=== PATIENT | female | born 1995 | race African-American/Black ===

== ENCOUNTER 2016-05-29 13:53 | Inpatient (IN) | payer OTHER ==
[~2016-05-29] VITALS: Ht 165.1 cm; Wt 115.0 kg
[2016-05-29 14:04] VITALS: BP 144/85
[2016-05-29] MEDS ORDERED: PRENTAB9 PO (14:16)
[2016-05-29] MEDS ORDERED: HEPA10004 SC (14:16)
[2016-05-29 15:53] VITALS: BP 124/60
[2016-05-29 18:04] VITALS: BP 138/64
[2016-05-29] MEDS ORDERED: LACTATED RINGER'S 1000 ML IV STA (19:25)
--- NOTE | 2016-05-29 19:50 | HPEPDOC ---
Obstetrical History & Physical General Date of Admission May 29, 2016 at 18:53 Primary Care Physician: WANDY MADSEN MD History of Present Illness 20 yo presented to L&D @ 37+6 by 6+6 wk US done on 20OCT2015 from clinic d/t late decels on NST being done for 22 wk loss and Factor V Leiden. Denies DFM, LOF, CTX and VB. GBS positive. Chief Complaint: Other (NRFHT) Information Provided By: Patient Age: 20 : 2 Term: 0 Pre-term: 1 Abortions: 0 Livin Care Care: Good Care Number of Visits: 17 Dating Final EDC: Jun 13, 2016 Final EDC for Daily Update: Jun 13, 2016 Final EDC by: 1st trimester (US) LMP: Sep 09, 2015 1st Trimester Date: Oct 20, 2015 Weeks + Days: 6.6 Estimated Date of Confinement: Jun 13, 2016 EGA at Admission: 37.6 Antepartum Course Diagnos(e)s 1. sickle cell trait positive 2. LGSIL 3. hx IUFD @ 22 wks 4. factor V Leiden 5. GBS positive- PCN allergy- clinda resistent 6. BMI- 34 Height (inches): 65 Pre- weight (lbs.): 210 Admission Weight (lbs.): 255 Change in Weight (lbs.): 45 Past Medical History Past Obstetrical History : Past Obstetrical History: Multigravida Date of Delivery: Mar 31, 2015 Gestation: 22 Type of Delivery: Spontaneous Vaginal Del. Sex of : Male Weight of (grams): 345 Complications: Yes (22 wk IUFD) RESEARCH ANALYST History: Abnormal Pap (hx LGSIL) Past Medical History Medical History Factor V Leiden Sickle cell trait obesity Surgical History: [place] teeth (2010) Family History Significant Family History: No pertinent family hx Social History Psychosocial History: No pertinent psych hx * Smoker: non-smoker Alcohol: Denies Drugs: denies Abuse Violence Screening Have you been hit/kicked/slapp: No Have you been sexually assault: No Imunizations Tdap status: current (29MAR2016) Influenza Status: current ([id number]) Allergies Coded Allergies: Penicillin G (Verified Allergy, Unknown, HIVES, 05/29/16) Medications Scheduled Heparin Sodium (Porcine) (Heparin Sodium) 5,000 Unit/0.5 Ml Inj 5,000 UNIT SC BID Multivitamins/ ( 27-0.8 mg) 1 Tab Tab 1 TAB PO DAILY Physical Examination Physical Examination GENERAL: A&O x 3 BREAST: Gravid ABDOMEN: Gravid and non-tender to touch. FETUS: VTX by US HEART RATE:RRR no m/r g LUNGS: CTA EXTREMITIES: + 2 LE edema. EFW: 3900 grams Vital Signs/I&O Vital Signs Date Time Temp Pulse Resp B/P Pulse Ox O2 Delivery O2 Flow Rate FiO2 05/29/16 18:04 95 18 138/64 05/29/16 15:53 98.7 Laboratory Data CBC/BMP 11.9/11.5/34.6/234 Urine Culture: Other (mixed francesca) Pertinent Laboratoy Data Blood Type: B+ RBC Antibody Screen: Negative HIV: Negative Hepatitis B: Negative Hepatitis C: Unknown Rapid Plasma Reagin: Nonreactive Rubella: Immune Varicella: Immune Chlamydia/Gonorrhea: Negative Group B Streptococcus: Positive Glucose Tolerance Test: 106 Anatomy Ultrasound Ultrasound Date: Jan 28, 2016 Placenta Location: Posterior Normal Anatomy: Yes (poor visualization d/t position and body habitus) Placenta Previa: No Estimated Weight (grams): 359 Other Ultrasounds [id number] SIUP, post placenta, no previa, normal anatomy, EFW- 465 grams, 45% [id number] SIUP, post placenta, no previa, normal 4 chanber heart and outflow tracts, profile vies normal; EFW-715 grams [id number]- 1480 grams; 47%, ROZINA- 22.78 [id number]- 2391 grams; 49%, ROZINA- 21.29 Steroid Therapy Steroid Therapy: No Vaginal Examination Dilation: None Effacement: 0-30% Station: -3 Cervical Consistency: Firm Cervical Position: Posterior Presentation: Cephalic presentation Position: Vertex (occiput) Assessment Heart Rate (FHR): 165 Variability: Moderate Accelerations: None Decelerations: Late, Variable Heart Patterns: Tachycardia Tocometer Contractions: Yes Frequency: irregular (Q2-6 min) Duration: other (lasting 60-120 sec) Strength: other (palpated as mild - moderate, resting tone soft) Multi-drug resistant Organism: No history of MDRO Assessment/Plan Assessment 20 yo presented to L&D @ 37+6 by 6+6 wk US done on 20OCT2015 from clinic d/t late decels on NST being done for 22 wk loss and Factor V Leiden. Denies DFM, LOF, CTX and VB. GBS positive. Plan Admit and orient. Surveillance System Monitor and consent. Diet: NPO GBS positive- treat with vanc per CDC protocol IV and labs per unit protocol Pre-e labs also to be done LR 1000 ml bolus, then 125 ml/hr C-S as appropriate. Report to Dr. Madsen @ [id number] MELANIE JENKINS CNM May 29, 2016 19:50
[2016-05-29] MEDS: VANCOMYCIN HCL 1,000 MG, VIAL MATE ADAPTER 1 EACH in D5W 250 ML IV SCH ×2 (20:00→21:00)
[2016-05-29 20:02] LABS: ALBUMIN 2.5 GM/DL (3.2-5.2); ALKALINE PHOSPHATASE 126 U/L (45-117); ALT/SGPT 15 U/L (12-78); ANION GAP 11 MEQ/L (8-16); AST/SGOT 16 U/L (15-37); BILIRUBIN,TOTAL 0.1 MG/DL (0.2-1.0); BLOOD UREA NITROGEN 10 MG/DL (7-18); CALCIUM LEVEL 9.2 MG/DL (8.5-10.1); CARBON DIOXIDE LEVEL 20 MEQ/L (21-32); CHLORIDE LEVEL 108 MEQ/L (98-107); CREATININE FOR GFR 0.75 MG/DL (0.55-1.02); GLOMERULAR FILTRATION RATE > 60.0 (>60); GLUCOSE, FASTING 83 MG/DL (70-105); POTASSIUM SERUM 4.5 MEQ/L (3.5-5.1); SODIUM LEVEL 139 MEQ/L (136-145); TOTAL PROTEIN 6.7 GM/DL (6.4-8.2); URIC ACID 6.2 MG/DL (2.6-6.0)
[2016-05-29] MEDS: LR 1,000 ML IV SCH (20:25)
[2016-05-29 21:14] LABS: MEAN CORPUSCULAR HEMOGLOBIN 28.7 pg (27.0-33.0); MEAN CORPUSCULAR HGB CONC 34.3 g/dl (32.0-36.5); MEAN CORPUSCULAR VOLUME 83.8 fl (80.0-96.0); RED CELL DISTRIBUTION WIDTH 15.1 % (11.5-14.5); WHITE BLOOD COUNT 11.9 K/mm3 (4.0-10.0)
--- NOTE | 2016-05-29 21:21 | PHACANCOPD ---
PHARMACY VANCOMYCIN DOSING Pt Demographics Demographics Patient Age:20 , Weight:115.000 , Gender: female Adjusted Body Weight Date: 05/29/16, Adjusted Body Weight: [115] Kg Events Past 24 Hours Events Past 24 Hours: NO: Change in CrCl, Dialysis, Diuretic Therapy, Elevation in WBC, Fever, Other, Pending Diagnostics, Pending Procedures Vancomycin Vancomycin indication: GBS POSITIVE WITH PCN ALERGY Vancomycin Target Ranges: 10-20 mcg/ml Vancomycin Load Y/N: Yes Load Dose Date Time Vancomycin Load Dose: 2G Date: 05/29/16 Time: 20:00 Vancomycin Dose Date: 05/29/16. Current Vancomycin Dose: [1G @8H @0400] Intermittent Dosing?: No Labs Labs Item Value Date Time White Blood Count 11.9 K/mm3 H 05/29/161931 Creatinine 0.75 MG/DL 05/29/161931 Creatinine Clearance Date:05/29/16. Creatinine Clearance: [113.3ML/MIN]. Assessment and Plan Maintaining Current Dose?: Yes Reason for dose change: No Dose Change Pharmacist Note Pharmacist Note Date: 05/29/16. Pharmacist note: PT is a 20 y/o female being treated for GBS positive with pcn allergy goal trough of 10-20mcg/ml. To achieve goal a 2g loading dose was started at 20:00 and will be followed with 1g q8h maintenance therapy @0400. This will be d/kit at delivery of baby. We will continue to monitor and adjust dose as needed. GIOVANI CORREA PHARMACY May 29, 2016 21:21
[2016-05-29] MEDS ORDERED: CLINDAMYCIN 900 MG/50 ML PREMIX BAG As Ordered ONE (21:54)
[2016-05-29] MEDS ORDERED: BICITRA 30ML SOLN UDC PO ONE (22:00)
[2016-05-29] MEDS ORDERED: GENTAMICIN 100 MG in APPROPRIATE DILUENT 1 EA IV ONE (22:00)
[2016-05-29] MEDS ORDERED: CLINDAMYCIN 900 MG in APPROPRIATE DILUENT 1 EA IV ONE (22:00)
[2016-05-29] MEDS ORDERED: MORPHINE PRES-FREE INJ 10 MG/10 ML VIAL (J2274) As Ordered ONE (22:03)
[2016-05-29] MEDS ORDERED: ONDANSETRON 4MG/2ML VIAL (J2405) IV PRN ×3 (22:35→23:45)
[2016-05-29] MEDS ORDERED: METOCLOPRAMIDE INJ 10MG/2ML VIAL (J2765) IV PRN (22:35)
[2016-05-29] MEDS ORDERED: NALOXONE INJ 0.4 MG/1 ML VIAL (J2310) IV PRN ×2 (22:35)
[2016-05-29] MEDS ORDERED: METOCLOPRAMIDE INJ 10MG/2ML VIAL (J2765) As Ordered ONE (23:03)
[2016-05-29] MEDS ORDERED: OXYTOCIN INJ 10 UNITS/ML VIAL (J2590) As Ordered ONE ×2 (23:03→23:31)
[2016-05-29] MEDS ORDERED: ePHEDrine SULFATE 25 MG/5 ML(5MG/ML) SYRINGE As Ordered ONE (23:07)
[2016-05-29] MEDS ORDERED: PHENYLephrine HCL 500 MCG/5 ML (100MCG/ML) SYRINGE (J2370) As Ordered ONE (23:07)
[2016-05-29] MEDS ORDERED: ONDANSETRON 4MG/2ML VIAL (J2405) As Ordered ONE (23:10)
[2016-05-29] MEDS ORDERED: KETOROLAC 60 MG/2 ML VIAL (J1885) As Ordered ONE (23:10)
[2016-05-29] MEDS ORDERED: MEASLES,MUMPS,RUBELLA VACCINE INJ (MMR-II) (90707) SC SCH (23:30)
[2016-05-29] MEDS ORDERED: PROMETHAZINE 25 MG TAB PO PRN (23:30)
[2016-05-29] MEDS ORDERED: PERCOCET 5MG/325MG TAB PO PRN ×3 (23:30→23:45)
[2016-05-29] MEDS ORDERED: METHYLERGONOVINE MALEATE 0.2 MG/ML VIAL (J2210) IM PRN (23:30)
[2016-05-29] MEDS: KETOROLAC 30 MG/ML VIAL (J1885) IV SCH (23:30)
[2016-05-29] MEDS ORDERED: RHOGAM 300 MCG (1500 IU) INJ (J2790) IM SCH (23:30)
[2016-05-29 23:37] LABS: CORD GAS ABE A -5.3; CORD GAS ABE V -4.3; CORD GAS HCO3 A 23.2 MEQ/L; CORD GAS HCO3 V 22.4 MEQ/L; CORD GAS O2 SAT A 18.3 %; CORD GAS O2 SAT V 49.3 %; CORD GAS PCO2 A 57.4 mmHg; CORD GAS PCO2 V 47.2 mmHg; CORD GAS PH A 7.225 UNITS; CORD GAS PH V 7.295 UNITS; CORD GAS PO2 V 22.4 mmHg; CORD GAS SBC A 18.3 MEQ/L; CORD GAS SBC V 19.8 MEQ/L; CORD GAS TCO2 V 23.9 MEQ/L
[2016-05-29] MEDS ORDERED: OXYTOCIN INJ 10 UNITS/ML VIAL (J2590) IV ONE (23:45)
[2016-05-29] MEDS ORDERED: HYDROmorphone HCL 1 MG/ML SYRINGE (J1170) IV PRN (23:45)
[2016-05-29] MEDS ORDERED: MEPERIDINE INJ 25 MG/ML VIAL (J2175) IV PRN (23:45)
[2016-05-29] MEDS ORDERED: NALBUPHINE HCL 10 MG/ML AMP (J2300) IV PRN (23:45)
[2016-05-29] MEDS ORDERED: LR 1,000 ML IV SCH (23:45)
[2016-05-29] MEDS ORDERED: diphenhydrAMINE INJ 50MG/ML VIAL (J1200) IV PRN (23:45)
[2016-05-29] MEDS ORDERED: fentaNYL 100 MCG/2 ML INJECTION (J3010) IV PRN (23:45)
[2016-05-30] VITALS (9 sets, daily range): BP systolic 123–159; BP diastolic 62–91
[2016-05-30] MEDS ORDERED: MEPERIDINE INJ 25 MG/ML VIAL (J2175) As Ordered ONE (00:13)
[2016-05-30] MEDS: NALBUPHINE HCL 10 MG/ML AMP (J2300) IV PRN ×2 (02:51→11:21)
[2016-05-30] MEDS ORDERED: VANCOMYCIN HCL 1,000 MG, VIAL MATE ADAPTER 1 EACH in D5W 250 ML IV SCH (04:00)
[2016-05-30] MEDS: KETOROLAC 30 MG/ML VIAL (J1885) IV SCH ×3 (05:42→18:08)
--- NOTE | 2016-05-30 06:38 | RO ---
DATE OF PROCEDURE: 05/29/2016 PREOPERATIVE DIAGNOSES: 1. Intrauterine at 37 plus 6 weeks estimated gestational age. 2. Nonreassuring heart rate tracing remote from delivery. POSTOPERATIVE DIAGNOSES: 1. Intrauterine at 37 plus 6 weeks estimated gestational age. 2. Nonreassuring heart rate tracing remote from delivery, delivered. PROCEDURE PERFORMED: Primary low transverse section. SURGEON: Shasha Madsen MD RENEWABLE ENERGY CONSULTANT: None. ESTIMATED BLOOD LOSS (EBL): 500 mL. URINE OUTPUT: 1650 mL. INTRAVENOUS (IV) FLUIDS: 1500 mL was of lactated Ringer's. SPECIMEN: Placenta and cord. FINDINGS: Viable female , 7 and 9, weight 2610 grams (5 pounds 12 ounces ). Normal uterus, tubes and ovaries bilaterally. ANTIBIOTICS: Gentamicin 100 mg IV and clindamycin 900 mg IV times one prior to skin incision. INDICATION: Patient is a 20-year-old, (G) 2, para (P) 0- 0-1-0, 37 +6 weeks estimated gestational age. She was undergoing a nonstress test in the office when she was noted to have a late deceleration on non-stress test (NST). She was then brought to labor and delivery for prolonged monitoring where she was reported to have recurrent late decelerations despite intrauterine resuscitation. The decision was made to proceed with a primary low transverse section for nonreassuring heart rate tracing. DESCRIPTION OF PROCEDURE: The risks, benefits, indications and alternatives of the procedure were reviewed with the patient. Informed consent was obtained. The patient was taken to the operating room where spinal anesthesia was found to be adequate. She was then prepped and draped in normal sterile fashion in a dorsal supine position with a leftward tilt. A Pfannenstiel skin incision was then made with the scalpel and carried through to the underlying layer of fascia. The fascia was then incised in the midline and elevated and the underlying rectus muscles dissected off aided with the Williamson scissors. Attention was then turned to the inferior aspect of the incision, which in a similar fashion was grasped and tented up with the Jocelyn clamps and the rectus dissected off aided with Williamson scissors. The rectus muscles were in the midline. The peritoneum identified, tented up and entered sharply with Metzenbaum scissors. The peritoneal incision was then exteriorized horizontally with good visualization of the bladder. The bladder blade was then inserted. Next, the lower uterine segment was incised in a transverse fashion with the scalpel. The uterine incision was then extended manually. The amniotic sac was artificially ruptured productive of clear fluid. The bladder blade was then removed. The infant's head delivered atraumatically in the occiput anterior (OA ) position through the hysterotomy without difficulty. The nose and mouth were suctioned with a bulb syringe and the cord doubly clamped and cut. The infant was handed off to waiting pediatricians. Cord gases were obtained. The placenta was then removed spontaneously with gentle traction on the umbilical cord. The uterus was then exteriorized and cleared of all clots and debris. The uterine incision was then repaired with #0 Vicryl in a running locked fashion. A second layer of #0 Vicryl was then used to imbricate the hysterotomy. The posterior cul-de-sac was then irrigated. The uterus was returned to the abdomen. The hysterotomy was again noted to be hemostatic. The pericolic gutters were irrigated and cleared of all clots and debris. The fascia was then reapproximated with #0 Vicryl in a running fashion. The subcutaneous layer was closed with #3-0 Vicryl in running fashion. The skin was closed with #3-0 Monocryl on a Karlos needle in subcuticular fashion. The incision was then dressed with Steri-Strips and a pressure dressing applied. At the completion of the case, bimanual exam performed with good visual, good uterine tone and minimal vaginal bleeding. The patient tolerated procedure well. Sponge, lap and needle counts were correct times three. The patient was taken to the recovery room in stable condition. GENARO
[2016-05-30 06:53] LABS: MEAN CORPUSCULAR HEMOGLOBIN 29.3 pg (27.0-33.0); MEAN CORPUSCULAR HGB CONC 34.7 g/dl (32.0-36.5); MEAN CORPUSCULAR VOLUME 84.4 fl (80.0-96.0); RED CELL DISTRIBUTION WIDTH 15.2 % (11.5-14.5); WHITE BLOOD COUNT 14.4 K/mm3 (4.0-10.0)
[2016-05-30] MEDS: LR 1,000 ML IV SCH ×3 (07:19→23:19)
[2016-05-30] MEDS: diphenhydrAMINE 50 MG CAP PO PRN ×2 (08:38→14:46)
[2016-05-30] MEDS: DOCUSATE SODIUM 100 MG CAP PO SCH ×2 (08:39→22:18)
[2016-05-30] MEDS: PRENATAL VITAMIN TAB PO SCH (08:39)
[2016-05-30] MEDS: ENOXAPARIN 60 MG/0.6 ML SYR (J1650) SC SCH (08:39)
[2016-05-30] MEDS ORDERED: KETOROLAC 30 MG/ML VIAL (J1885) IV ONE (23:30)
[2016-05-31] MEDS: diphenhydrAMINE 50 MG CAP PO PRN ×2 (07:16→20:51)
[2016-05-31] MEDS: LR 1,000 ML IV SCH ×3 (07:19→23:19)
[2016-05-31 07:41] VITALS: BP 160/88
[2016-05-31] MEDS: PRENATAL VITAMIN TAB PO SCH (08:39)
[2016-05-31] MEDS: IBUPROFEN 800 MG TAB PO SCH ×3 (08:40→22:26)
[2016-05-31] MEDS: DOCUSATE SODIUM 100 MG CAP PO SCH ×2 (08:40→20:13)
[2016-05-31] MEDS: ENOXAPARIN 60 MG/0.6 ML SYR (J1650) SC SCH (08:41)
[2016-05-31 09:00] VITALS: BP 148/90
[2016-05-31 14:13] LABS: MEAN CORPUSCULAR HEMOGLOBIN 28.7 pg (27.0-33.0); MEAN CORPUSCULAR HGB CONC 33.8 g/dl (32.0-36.5); MEAN CORPUSCULAR VOLUME 84.9 fl (80.0-96.0); RED CELL DISTRIBUTION WIDTH 15.6 % (11.5-14.5); WHITE BLOOD COUNT 12.3 K/mm3 (4.0-10.0)
[2016-05-31 14:29] LABS: ALT/SGPT 26 U/L (12-78); AST/SGOT 36 U/L (15-37); BILIRUBIN,TOTAL 0.2 MG/DL (0.2-1.0); CREATININE FOR GFR 0.81 MG/DL (0.55-1.02); GLOMERULAR FILTRATION RATE > 60.0 (>60); URIC ACID 7.8 MG/DL (2.6-6.0)
[2016-05-31 15:20] VITALS: BP 169/99
[2016-05-31 17:52] VITALS: BP 152/94
[2016-05-31] MEDS: LABETALOL 200 MG TAB PO SCH (17:52)
[2016-05-31 20:00] VITALS: BP 152/94
[2016-05-31 22:36] VITALS: BP 138/74
[2016-06-01 02:51] VITALS: BP 140/70
[2016-06-01 07:09] VITALS: BP 142/88
[2016-06-01] MEDS: LR 1,000 ML IV SCH (07:19)
[2016-06-01] MEDS: ENOXAPARIN 60 MG/0.6 ML SYR (J1650) SC SCH (07:46)
[2016-06-01] MEDS: PRENATAL VITAMIN TAB PO SCH (07:47)
[2016-06-01] MEDS: LABETALOL 200 MG TAB PO SCH (07:47)
[2016-06-01] MEDS: DOCUSATE SODIUM 100 MG CAP PO SCH (07:47)
[2016-06-01] MEDS: IBUPROFEN 800 MG TAB PO SCH (07:48)
[2016-06-01 10:54] LABS: MEAN CORPUSCULAR HEMOGLOBIN 28.5 pg (27.0-33.0); MEAN CORPUSCULAR HGB CONC 33.8 g/dl (32.0-36.5); MEAN CORPUSCULAR VOLUME 84.3 fl (80.0-96.0); RED CELL DISTRIBUTION WIDTH 15.4 % (11.5-14.5); WHITE BLOOD COUNT 11.8 K/mm3 (4.0-10.0)
[2016-06-01] MEDS ORDERED: OXYC1TAB23 PO (11:37)
[2016-06-01] MEDS ORDERED: NORMODYNE PO (11:37)
[2016-06-01] MEDS ORDERED: COLA100C PO (11:37)
[2016-06-01] MEDS ORDERED: LOVE0.4I2 SC (11:37)
[2016-06-01] MEDS ORDERED: IBUP-1114 PO (11:37)
== END 2016-06-01 12:55 | disposition home or self-care (01) | DRG 765 ==
LOC: M LDO 13:53 → M LDI 18:53 → M OBS 05-30 00:28
PROVIDERS: ADMIT Midwife; ATTEND Midwife
PROC: 10D00Z1 Extraction of Products of Conception, Low, Open Approach (ICD-10-PCS; principal; 2016-05-29 22:47)
DX: O76 Abnormality in fetal heart rate and rhythm complicating labor and delivery (principal); D68.51 Activated protein C resistance; O99.12 Other diseases of the blood and blood-forming organs and certain disorders involving the immune mechanism complicating childbirth; O99.824 Streptococcus B carrier state complicating childbirth; Z37.0 Single live birth; Z3A.37 37 weeks gestation of pregnancy; D57.3 Sickle-cell trait; Z88.0 Allergy status to penicillin; E66.9 Obesity, unspecified; O99.214 Obesity complicating childbirth; O99.02 Anemia complicating childbirth; O13.5 Gestational [pregnancy-induced] hypertension without significant proteinuria, complicating the puerperium; Z79.899 Other long term (current) drug therapy

== ENCOUNTER → 2016-11-23 | Outpatient (CLI) | payer OTHER ==
[~2016-11-23] MED LIST: COLA100C5 PO; HEPA10004 SC; IBUP-1114 PO; LOVE0.4I2 SC; NORMODYNE PO; OXYC1TAB23 PO; PRENTAB9 PO
--- NOTE | 2016-11-23 18:14 | REP ---
Clinical: Confirm intrauterine seen Technique: Transabdominal and transvaginal first trimester obstetrical ultrasound with color Doppler evaluation. Findings: Heterogeneous anteverted uterus measures 9.6 x 5.1 x 5.5 cm. The endometrium is poorly identified. Two small cystic structure identified within the uterus measuring 6.3 mm and 5.9 mm maximal diameter each which corresponds to 5 weeks 2 days gestational age. The bilateral ovaries are normal in appearance. Right ovary measures 2.2 x 2.1 x 2.9 cm. Left ovary measures 3.3 x 3.2 x 4.6 cm and includes 2.2 x 1.7 x 1.8 cm corpus luteal cyst. No pelvic fluid or adnexal mass lesion. Impression: 1. Heterogeneous anteverted uterus with two small cystic structures each measuring at 5 weeks 2 days gestational age but without definable yolk sac or pole. Correlation with serial HCG levels are recommended and repeat ultrasound may be warranted. Intrauterine cannot be confirmed. Signed by Tunde Jeffery MD 11/23/2016 06:05 P
== END ==
LOC: M RAD 17:07
PROVIDERS: ATTEND Physician Assistant
DX: Z32.01 Encounter for pregnancy test, result positive (principal)

== ENCOUNTER → 2016-11-29 | Outpatient (CLI) | payer OTHER ==
--- NOTE | 2016-11-29 20:24 | REP ---
OB ULTRASOUND: Real-time sonographic evaluation of the gravid uterus performed utilizing transabdominal technique. There is a single living intrauterine gestation with an estimated gestational age of 6 weeks based on a crown rump length of 4 mm, EDC 07/25/2017. heart rate 126 beats per minute. There is no subchorionic hemorrhage. There is a cystic structure in the left ovary probably representing a corpus luteum measuring 2.5 x 1.9 x 2.6 cm. Signed by Brock Gillis MD 11/30/2016 05:37 P
== END ==
LOC: M RAD 15:50
PROVIDERS: ATTEND Physician Assistant
DX: Z32.01 Encounter for pregnancy test, result positive (principal); Z3A.01 Less than 8 weeks gestation of pregnancy

== ENCOUNTER → 2016-12-14 | Outpatient (CLI) | payer OTHER ==
--- NOTE | 2016-12-14 17:17 | REP ---
Pelvic ultrasound, stat request: The study is performed with transabdominal ultrasound assessment. The bladder is adequately distended. The uterus is anteverted and enlarged measuring 11.5 by 4.1 x 5.3 cm. The endometrium is not thickened measuring 5 mm. There is no evidence of intrauterine gestation. The myometrium is homogeneous. Right ovary: The right ovary is normal size measuring 2.8 x 1.6 x 2.0 cm. There is no dominant right ovarian mass or cyst. However, with Doppler assessment, only venous flow is identified, raising the possibility of right ovarian torsion. However, imaging of the right ovary is complicated by obscuration from adjacent bowel. The left ovary is normal size measuring 320 x 2.9 x 2.5 cm. There is no dominant left ovarian mass or cyst. There is vascular flow in the left ovary with the Doppler resistive index of intraparenchymal arteries measuring 0.39. Impression: There is no intrauterine gestation. There is no free fluid. There are no ovarian masses or cysts. However, only venous flow is identified in the right ovary on Doppler assessment. This may indicate torsion of the right ovary. However, visualization right ovary is complicated by obscuration from adjacent bowel loops. There is normal vascular flow in the left ovary. Signed by Brock Fenton MD 12/14/2016 05:09 P
== END ==
LOC: M RAD 16:14
PROVIDERS: ATTEND Physician Assistant
DX: Z32.01 Encounter for pregnancy test, result positive (principal)

== ENCOUNTER 2017-08-08 05:46 | Emergency (ER) | payer OTHER | END 2017-08-08 06:37 | disposition home or self-care (01) | LOC: M ED 05:46 | DX: J03.90 Acute tonsillitis, unspecified (principal); H65.02 Acute serous otitis media, left ear; J32.9 Chronic sinusitis, unspecified; R05 Cough; D68.51 Activated protein C resistance; F17.200 Nicotine dependence, unspecified, uncomplicated | CPT/HCPCS: 99283 ==

== ENCOUNTER → 2017-08-21 | Day surgery (SDC) | payer OTHER ==
[~2017-08-21] MED LIST changes: -COLA100C5 PO; +GLYCOPYRROLATE INJ 0.2 MG/ML 2 ML VIAL As Ordered; -HEPA10004 SC; -IBUP-1114 PO; +KETOROLAC 60 MG/2 ML VIAL (J1885) As Ordered; +LIDOCAINE 2% INJ 100 MG/5 ML SDV (FOR ANES.) As Ordered; -LOVE0.4I2 SC; +LR 1,000 ML IV; +LevoFLOXacin(LEVAQUIN)500 MG/100 ML BAG (J1956) As Ordered; +METOCLOPRAMIDE INJ 10MG/2ML VIAL (J2765) IV; +MIDAZOLAM INJ 2 MG/2 ML VIAL (J2250) As Ordered; +MORPHINE 4 MG/ML 1ML VIAL/SYRINGE (J2270) IV; +NEOSTIGMINE 10 MG/10 ML VIAL (J2710) As Ordered; +NORCO, ANEXSIA 5/325MG TABLET (HYDROcodone/ACETAMINOPHEN) PO; -NORMODYNE PO; +ONDANSETRON 4MG/2ML VIAL (J2405) As Ordered; +ONDANSETRON 4MG/2ML VIAL (J2405) IV; -OXYC1TAB23 PO; +PERCOCET 5MG/325MG TAB As Ordered; -PRENTAB9 PO; +PROPOFOL 200 MG/20 ML VIAL As Ordered; +ROCURONIUM BROMIDE 50 MG/5 ML VIAL As Ordered; +dexameTHASONE 4 MG/ML 1ML VIAL (J1100) As Ordered; +fentaNYL 250 MCG/5 ML INJECTION (J3010) As Ordered
[2017-08-21] MEDS: ceFAZolin SOD 1 GM in D5W MINI-BAG PLUS 50 ML IV (05:45)
[2017-08-21] MEDS: LR 1,000 ML IV (06:40)
[2017-08-21 06:43] LABS: CONTROL LINE UCG INT CTR LINE PRESENT; URINE PREG TEST NEGATIVE (NEGATIVE)
[2017-08-21] MEDS: LevoFLOXacin IV 500 MG in APPROPRIATE DILUENT 1 EA IV (07:30)
[2017-08-21] MEDS: BUPIVACAINE/EPIN 0.25% 30 ML VIAL As Ordered (08:07)
[2017-08-21] MEDS: PERCOCET 5MG/325MG TAB PO ×2 (09:25→11:04)
== END | disposition home or self-care (01) ==
LOC: M SDC 05:34
DX: K80.18 Calculus of gallbladder with other cholecystitis without obstruction (principal); Z88.0 Allergy status to penicillin; Z88.5 Allergy status to narcotic agent; Z79.899 Other long term (current) drug therapy
CPT/HCPCS: 47562